=== PATIENT | male | born 1990 | race African-American/Black ===

== ENCOUNTER 2017-09-23 11:17 | Emergency (ER) | payer MEDICAID ==
[~2017-09-23] VITALS: Ht 170.2 cm; Wt 70.0 kg
[2017-09-23 11:36] VITALS: BP 133/90
== END 2017-09-23 13:30 | disposition left against medical advice (07) ==
LOC: ER 11:57
DX: R07.9 Chest pain, unspecified (principal); Z53.21 Procedure and treatment not carried out due to patient leaving prior to being seen by health care provider

== ENCOUNTER 2017-12-08 23:06 | Emergency (ER) | payer MEDICAID ==
[~2017-12-08] VITALS: Ht 172.7 cm; Wt 74.0 kg
[2017-12-08 23:12] VITALS: BP 127/77
== END 2017-12-09 01:11 | disposition home or self-care (01) ==
LOC: ER 23:06
DX: J06.9 Acute upper respiratory infection, unspecified (principal)
CPT/HCPCS: 71045; 99283